=== PATIENT | male | born 2000 | race Caucasian/White ===

== ENCOUNTER 2020-10-07 03:35 | Emergency (ER) | payer MEDICAID, SELFPAY ==
[2020-10-07 03:37] VITALS: BP 142/82; PULSE 96; RESP 14; TEMP 37.2; O2SAT 98; BMI 35.9
[2020-10-07 03:56] LABS: Adenovirus,PCR Not Detected (NotDetected); Bordetella Pertussis Not Detected (NotDetected); Chlamydophila Pneumoniae, PCR Not Detected (NotDetected); Coronavirus 19, PCR Not Detected (NotDetected); Coronavirus 229E Not Detected (NotDetected); Coronavirus NL63 Not Detected (NotDetected); Coronavirus OC43 Not Detected (NotDetected); Coronovirus HKU1,PCR Not Detected (NotDetected); Human Metapneumovirus Not Detected (NotDetected); Influenza A, PCR Not Detected (NotDetected); Influenza AH1, 2009 Not Detected (NotDetected); Influenza AH1, PCR Not Detected (NotDetected); Influenza AH3,PCR Not Detected (NotDetected); Influenza B, PCR Not Detected (NotDetected); Mycoplasma Pneumoniae, PCR Not Detected (NotDetected); Parainfluenza 1, PCR Not Detected (NotDetected); Parainfluenza 2, PCR Not Detected (NotDetected); Parainfluenza 3, PCR Not Detected (NotDetected); Parainfluenza 4, PCR Not Detected (NotDetected); Respiratory Syncytial Virus Not Detected (NotDetected); Rhinovirus/Enterovirus Not Detected (NotDetected)
[2020-10-07 04:00] VITALS: BP 144/80; PULSE 95; O2SAT 98
[2020-10-07 04:07] LABS: Strep Scrn Group A (Rapid) Negative (Negative)
[2020-10-07 04:30] VITALS: BP 141/79; PULSE 92; RESP 16; O2SAT 99
[2020-10-07 05:00] VITALS: BP 125/76; PULSE 99; O2SAT 98
[2020-10-07 05:34] VITALS: BP 124/82; PULSE 95; RESP 16; TEMP 36.9; O2SAT 99
--- NOTE | 2020-10-07 05:36 | [facility].EDURI ---
ED Disposition Clinical Impression: Otitis media Qualifiers: Otitis media type: suppurative Chronicity: acute Laterality: right Recurrence: not specified as recurrent Spontaneous tympanic membrane rupture: without spontaneous rupture Qualified Code(s): H66.001 - Acute suppurative otitis media without spontaneous rupture of ear drum, right ear Disposition: Home, Self-Care Condition on Discharge: Good Instructions: Middle Ear Infection Additional Instructions: use meds and see pcp for follow up Prescriptions: cephALEXin [cephALEXin 500mg capsule*] 500 mg PO TID #30 cap Transmission Status: Pending to [facility] predniSONE [Prednisone 20mg Tab] 20 mg PO BID #6 tab Transmission Status: Pending to [facility] Referrals: Marcello Ojeda MD [Primary Care Provider] - - Critical Care Critical Care Time: No Attestation: On 10/07/20, the high probability of a clinically significant, sudden or life threatening deterioration of the following system(s) required my full and direct attention, intervention and personal management. The time I documented below is in addition to time spent performing reported procedures but includes the following listed in this critical care notation. Medical Decision Making - Medical Records Medical records reviewed: Yes: I reviewed the patient's medical records. - Víctor Inquiry Pt receiving controlled substance: No Vital Signs: 10/07/20 03:37 10/07/20 04:00 10/07/20 04:30 Temperature 98.9 F Temperature Source Oral Pulse Rate 95 H 92 H Pulse Rate [Left Radial] 96 H Respiratory Rate 14 16 Blood Pressure 144/80 H 141/79 H Blood Pressure [Right Arm] 142/82 H Blood Pressure Mean [Right Arm] 102 Blood Pressure Source [Right Arm] Automatic Cuff Blood Pressure Position [Right Arm] Sitting 02 Sat by Pulse Oximetry 98 98 99 Oxygen Delivery Method Room Air Room Air Room Air 10/07/20 05:00 Temperature Temperature Source Pulse Rate 99 H Pulse Rate [Left Radial] Respiratory Rate Blood Pressure 125/76 Blood Pressure [Right Arm] Blood Pressure Mean [Right Arm] Blood Pressure Source [Right Arm] Blood Pressure Position [Right Arm] 02 Sat by Pulse Oximetry 98 Oxygen Delivery Method Room Air - Lab Data Lab results reviewed: Yes: I reviewed the patient's lab results. Lab Results 10/07/20 03:40: Group A Strep Rapid Negative 10/07/20 03:40: Chlamy pneumoniae PCR Not detected, Adenovirus (PCR) Not detected, B. pertussis DNA (PCR) Not detected, Coronavirus OC43 (PCR) Not detected, Coronavirus HKU1 (PCR) Not detected, Coronavirus 229E (PCR) Not detected, SARS-CoV-2 (PCR) Not detected, Coronavirus NL63 (PCR) Not detected, Human Metapneumovir PCR Not detected, Influenza A (H1) PCR Not detected, Influ A (H1N1/09) PCR Not detected, Influenza A (H3) PCR Not detected, Influenza Type A (PCR) Not detected, Influenza Type B (PCR) Not detected, M. pneumoniae (PCR) Not detected, Parainfluenza 1 (PCR) Not detected, Parainfluenza 2 (PCR) Not detected, Parainfluenza 3 (PCR) Not detected, Parainfluenza 4 (PCR) Not detected, RSV (PCR) Not detected, Entero/Rhino (PCR) Not detected Orders (Tests/Meds): ORDERS Category Date Time Status Strep Screen Confirmation Stat Micro 10/07/20 03:40 Received Medical Decision Narrative: pt with rt otitis media - neg resp panel URI/Sore Throat HPI - General Chief Complaint: Upper Respiratory Infection Stated Complaint: sore throat, ear ache Time Seen by Provider: 10/07/20 04:15 Mode of Arrival: Ambulatory Source of Information: Patient, Medical Record Limitations: No Limitations Description of Symptoms (Recalled from ER Triage Doc. by RN): Pt reports a sore throat for 2-3 days, came into ED tonight because he has developed right ear pain that radiates into his jaw. Pt denies fever, N/V/D, soa, cough, cp, or recent sick contacts. - History of Present Illness HPI Narrative: sore throat with rt e
== END 2020-10-07 05:53 | disposition home or self-care (01) ==
PROVIDERS: Emergency Provider Emergency Medicine; PCP Family Medicine
DX: H66.001 Acute suppurative otitis media without spontaneous rupture of ear drum, right ear (principal)
CPT/HCPCS: 87430; 87581; 87633; 87798; 99282